=== PATIENT | male | born 1985 | race Caucasian/White ===

== ENCOUNTER 2021-05-11 08:53 | Inpatient (IN) | payer OTHER ==
[2021-05-11] MEDS ORDERED: KETOROLAC TROMETHAMINE 30 MG/1 ML VIAL IVPUSH ONE (10:24)
[2021-05-11] MEDS ORDERED: SODIUM CHLORIDE 1,000 ML IV STA ×2 (10:25→13:58)
[2021-05-11] MEDS ORDERED: ONDANSETRON 4 MG/2 ML VIAL IVPUSH ONE (10:25)
[2021-05-11] MEDS ORDERED: ONDANSETRON 4 MG/2 ML VIAL ONE (10:33)
[2021-05-11] MEDS ORDERED: KETOROLAC TROMETHAMINE 30 MG/1 ML VIAL ONE (10:33)
[2021-05-11 11:53] LABS: INR 1.19 (0.83-1.09); PROTHROMBIN TIME (PATIENT) 13.9 SEC (9.7-13.0)
[2021-05-11 11:55] LABS: BASO % 0.3 % (0-2.0); HEMATOCRIT 44.3 % (35.4-49); HEMOGLOBIN 14.5 GM/dL (11.7-16.9); LYMPH % 5.9 % (8-40); MCH 26.7 pg (25.7-33.7); MCHC 32.6 g/dl (32.0-35.9); MEAN CELL VOLUME 81.9 fl (80-96); MONO % 5.9 % (3.8-10.2); NEUT % 87.9 % (42.8-82.8); PLATELET COUNT 330 10^3/uL (134-434); RBC 5.42 M/mm3 (4.00-5.60); RDW 15.1 % (11.9-15.9); WHITE BLOOD COUNT 17.2 K/mm3 (4.0-10.0)
[2021-05-11 12:08] LABS: BLOOD UREA NITROGEN 12.4 mg/dL (7-18); CALCIUM 9.5 mg/dL (8.5-10.1)
[2021-05-11 12:11] LABS: CREATININE 0.8 mg/dL (0.55-1.3)
[2021-05-11 12:13] LABS: BILIRUBIN,TOTAL 0.5 mg/dL (0.2-1)
[2021-05-11] MEDS ORDERED: PIPERACILLIN/TAZOB 3.375 GM 3.375 GM in DEXTROSE 5%-WATER - 50 ML IVPB ONE (13:56)
[2021-05-11] MEDS ORDERED: morphine CARPU-JECT 4 MG/1 ML DISP.SYRIN IVPUSH ONE ×2 (13:58→17:36)
[2021-05-11] MEDS ORDERED: morphine SULFATE 4 MG/ML VIAL ONE ×3 (14:14→18:47)
[2021-05-11] MEDS ORDERED: PIPERACILLIN/TAZOB 3.375 GM 3.375 GM/50 ML BAG IVPB ONE (14:14)
[2021-05-11] MEDS ORDERED: ACETAMINOPHEN 1000 MG/100 ML BAG IVPB PRN (14:14)
[2021-05-11] MEDS ORDERED: ONDANSETRON 4 MG/2 ML VIAL IVPUSH PRN (14:17)
[2021-05-11 14:32] LABS: EPI CELLS 8 /uL (0-25.1); HYALINE CASTS 4 /uL (0-3.1); URINE APPEARANCE CLEAR; URINE BACTERIA 12 /uL (0-1359); URINE BILIRUBIN NEGATIVE (NEGATIVE); URINE COLOR YELLOW; URINE GLUCOSE (UA) NEGATIVE (NEGATIVE); URINE KETONE NEGATIVE (NEGATIVE); URINE LEUK ESTERASE NEGATIVE (NEGATIVE); URINE NITRITE NEGATIVE (NEGATIVE); URINE PROTEIN 2+ (NEGATIVE); URINE RBC 1056 /uL (0-23.9); URINE WBC 7 /uL (0-25.8)
[2021-05-11] MEDS ORDERED: IBUPROFEN 800 MG/8 ML IJ IVPB ONE ×2 (17:12→17:29)
[2021-05-11] MEDS: LACTATED RINGERS SOLUTION 1,000 ML/1,000 ML INFUS.BAG IV SCH (17:40)
[2021-05-12] MEDS: LACTATED RINGERS SOLUTION 1,000 ML/1,000 ML INFUS.BAG IV SCH ×3 (02:12→16:33)
[2021-05-12] MEDS: morphine SULFATE 4 MG/ML VIAL IVPUSH PRN ×2 (02:13→17:42)
[2021-05-12 08:58] LABS: BASO % 0.2 % (0-2.0); EOS % 0.1 % (0-4.5); HEMATOCRIT 37.6 % (35.4-49); HEMOGLOBIN 12.3 GM/dL (11.7-16.9); LYMPH % 4.5 % (8-40); MCH 27.1 pg (25.7-33.7); MCHC 32.8 g/dl (32.0-35.9); MEAN CELL VOLUME 82.8 fl (80-96); MEAN PLT VOLUME 8.2 fl (7.5-11.1); MONO % 7.5 % (3.8-10.2); NEUT % 87.7 % (42.8-82.8); PLATELET COUNT 277 10^3/uL (134-434); RBC 4.54 M/mm3 (4.00-5.60); RDW 14.9 % (11.9-15.9); WHITE BLOOD COUNT 14.5 K/mm3 (4.0-10.0)
[2021-05-12] MEDS ORDERED: DEXTROSE 5%-WATER 100 ML IVPB ONE (09:34)
[2021-05-12] MEDS ORDERED: CEFTRIAXONE 2 GM in DEXTROSE 5%-WATER 100 ML IVPB SCH (10:00)
[2021-05-12] MEDS ORDERED: FLU VACC QS2021-22(6MOS UP)/PF 60 MCG/0.5 ML SYRINGE IM ONE (10:00)
[2021-05-12] MEDS: IBUPROFEN 800 MG/8 ML IJ IVPB PRN ×2 (14:10→21:50)
[2021-05-12] MEDS: ACETAMINOPHEN 1000 MG/100 ML BAG IVPB PRN (17:03)
[2021-05-12] MEDS ORDERED: DEXTROSE 5%-WATER - 50 ML IVPB ONE ×2 (17:17→23:43)
[2021-05-12] MEDS ORDERED: PIPERACILLIN/TAZOBACTAM 3.375 GM VIAL IVPB ONE ×2 (17:17→23:43)
[2021-05-12] MEDS: PIPERACILLIN/TAZOB 3.375 GM 3.375 GM in DEXTROSE 5%-WATER - 50 ML IVPB SCH (18:01)
[2021-05-12] MEDS ORDERED: morphine SULFATE 4 MG/ML VIAL IM ONE (18:39)
[2021-05-12] MEDS ORDERED: morphine SULFATE 4 MG/ML VIAL IVPUSH ONE (18:52)
[2021-05-13] MEDS: PIPERACILLIN/TAZOB 3.375 GM 3.375 GM in DEXTROSE 5%-WATER - 50 ML IVPB SCH ×3 (01:11→18:33)
[2021-05-13] MEDS: LACTATED RINGERS SOLUTION 1,000 ML/1,000 ML INFUS.BAG IV SCH ×2 (02:20→16:02)
[2021-05-13] MEDS: morphine SULFATE 4 MG/ML VIAL IVPUSH PRN ×3 (05:01→21:09)
[2021-05-13] MEDS ORDERED: PIPERACILLIN/TAZOBACTAM 3.375 GM VIAL IVPB ONE ×2 (09:00→18:20)
[2021-05-13] MEDS ORDERED: DEXTROSE 5%-WATER - 50 ML IVPB ONE ×2 (09:00→18:20)
[2021-05-13] MEDS: ACETAMINOPHEN 1000 MG/100 ML BAG IVPB PRN (09:03)
[2021-05-13 09:11] LABS: HEMATOCRIT 42.5 % (35.4-49); HEMOGLOBIN 13.9 GM/dL (11.7-16.9); MCH 27.3 pg (25.7-33.7); MCHC 32.8 g/dl (32.0-35.9); MEAN CELL VOLUME 83.2 fl (80-96); MEAN PLT VOLUME 8.4 fl (7.5-11.1); PLATELET COUNT 284 10^3/uL (134-434); RDW 15.4 % (11.9-15.9)
[2021-05-13 09:42] LABS: BLOOD UREA NITROGEN 14.2 mg/dL (7-18); CALCIUM 8.5 mg/dL (8.5-10.1)
[2021-05-13 09:43] LABS: MAGNESIUM 2.2 mg/dL (1.8-2.4)
[2021-05-13 09:45] LABS: CREATININE 0.9 mg/dL (0.55-1.3)
[2021-05-13 09:46] LABS: PHOSPHOROUS 3.6 mg/dL (2.5-4.9)
[2021-05-13] MEDS: IBUPROFEN 800 MG/8 ML IJ IVPB PRN (11:40)
[2021-05-14] MEDS ORDERED: PIPERACILLIN/TAZOBACTAM 3.375 GM VIAL IVPB ONE ×4 (03:20→23:15)
[2021-05-14] MEDS ORDERED: DEXTROSE 5%-WATER - 50 ML IVPB ONE ×4 (03:20→23:15)
[2021-05-14] MEDS: PIPERACILLIN/TAZOB 3.375 GM 3.375 GM in DEXTROSE 5%-WATER - 50 ML IVPB SCH ×3 (03:50→17:11)
[2021-05-14 09:27] LABS: HEMATOCRIT 37.7 % (35.4-49); HEMOGLOBIN 12.7 GM/dL (11.7-16.9); MCHC 33.7 g/dl (32.0-35.9); MEAN CELL VOLUME 79.9 fl (80-96); PLATELET COUNT 293 10^3/uL (134-434); RBC 4.71 M/mm3 (4.00-5.60); RDW 15.5 % (11.9-15.9); WHITE BLOOD COUNT 9.3 K/mm3 (4.0-10.0)
[2021-05-14 09:52] LABS: CALCIUM 8.6 mg/dL (8.5-10.1)
[2021-05-14 09:53] LABS: BLOOD UREA NITROGEN 20.3 mg/dL (7-18)
[2021-05-14 09:56] LABS: CREATININE 0.8 mg/dL (0.55-1.3)
[2021-05-14] MEDS: LACTATED RINGERS SOLUTION 1,000 ML/1,000 ML INFUS.BAG IV SCH ×2 (13:17→16:42)
[2021-05-14] MEDS: LACTOBACILLUS ACIDOPHILUS 1 TABLET PO SCH (13:18)
[2021-05-14] MEDS: IBUPROFEN 800 MG/8 ML IJ IVPB PRN (16:04)
[2021-05-14] MEDS ORDERED: morphine SULFATE 4 MG/ML VIAL IVPUSH PRN (16:26)
[2021-05-15] MEDS: PIPERACILLIN/TAZOB 3.375 GM 3.375 GM in DEXTROSE 5%-WATER - 50 ML IVPB SCH ×3 (01:24→17:06)
[2021-05-15] MEDS: LACTATED RINGERS SOLUTION 1,000 ML/1,000 ML INFUS.BAG IV SCH ×2 (02:17→15:50)
[2021-05-15] MEDS ORDERED: DEXTROSE 5%-WATER - 50 ML IVPB ONE ×2 (09:25→16:58)
[2021-05-15] MEDS ORDERED: PIPERACILLIN/TAZOBACTAM 3.375 GM VIAL IVPB ONE ×2 (09:25→16:58)
[2021-05-15] MEDS: LACTOBACILLUS ACIDOPHILUS 1 TABLET PO SCH (09:52)
[2021-05-15 09:58] LABS: HEMATOCRIT 38.9 % (35.4-49); HEMOGLOBIN 12.7 GM/dL (11.7-16.9); MCH 26.8 pg (25.7-33.7); MCHC 32.6 g/dl (32.0-35.9); MEAN CELL VOLUME 82.4 fl (80-96); MEAN PLT VOLUME 8.2 fl (7.5-11.1); PLATELET COUNT 330 10^3/uL (134-434); RBC 4.72 M/mm3 (4.00-5.60); RDW 15.9 % (11.9-15.9)
[2021-05-15 10:24] LABS: BLOOD UREA NITROGEN 17.1 mg/dL (7-18); CALCIUM 8.5 mg/dL (8.5-10.1)
[2021-05-15 10:25] LABS: MAGNESIUM 2.6 mg/dL (1.8-2.4)
[2021-05-15 10:28] LABS: CREATININE 0.7 mg/dL (0.55-1.3)
[2021-05-15] MEDS: MELATONIN 5 MG TABLETS PO PRN (23:20)
[2021-05-16] MEDS ORDERED: DEXTROSE 5%-WATER - 50 ML IVPB ONE ×3 (02:46→17:35)
[2021-05-16] MEDS ORDERED: PIPERACILLIN/TAZOBACTAM 3.375 GM VIAL IVPB ONE ×3 (02:46→17:35)
[2021-05-16] MEDS: PIPERACILLIN/TAZOB 3.375 GM 3.375 GM in DEXTROSE 5%-WATER - 50 ML IVPB SCH ×3 (02:50→17:50)
[2021-05-16] MEDS ORDERED: ENOXAPARIN NA (PORCINE) 40 MG/0.4 ML DISP.SYRIN SQ ONE (08:34)
[2021-05-16 08:56] LABS: HEMATOCRIT 36.1 % (35.4-49); MCHC 33.3 g/dl (32.0-35.9); MEAN PLT VOLUME 7.8 fl (7.5-11.1); PLATELET COUNT 293 10^3/uL (134-434); RBC 4.46 M/mm3 (4.00-5.60); RDW 15.9 % (11.9-15.9); WHITE BLOOD COUNT 12.1 K/mm3 (4.0-10.0)
[2021-05-16 09:16] LABS: CALCIUM 7.7 mg/dL (8.5-10.1)
[2021-05-16 09:17] LABS: MAGNESIUM 2.3 mg/dL (1.8-2.4)
[2021-05-16 09:20] LABS: CREATININE 0.6 mg/dL (0.55-1.3); PHOSPHOROUS 3.5 mg/dL (2.5-4.9)
[2021-05-16] MEDS: LACTATED RINGERS SOLUTION 1,000 ML/1,000 ML INFUS.BAG IV SCH ×3 (09:58→17:51)
[2021-05-16] MEDS: LACTOBACILLUS ACIDOPHILUS 1 TABLET PO SCH (09:59)
[2021-05-16] MEDS ORDERED: ACETAMINOPHEN 325 MG TABLET (FP) PO PRN (15:37)
[2021-05-16] MEDS: MELATONIN 5 MG TABLETS PO PRN (21:06)
[2021-05-17] MEDS ORDERED: DEXTROSE 5%-WATER - 50 ML IVPB ONE ×3 (01:08→17:08)
[2021-05-17] MEDS ORDERED: PIPERACILLIN/TAZOBACTAM 3.375 GM VIAL IVPB ONE ×3 (01:08→17:08)
[2021-05-17] MEDS: PIPERACILLIN/TAZOB 3.375 GM 3.375 GM in DEXTROSE 5%-WATER - 50 ML IVPB SCH ×3 (01:22→17:09)
[2021-05-17] MEDS: LACTATED RINGERS SOLUTION 1,000 ML/1,000 ML INFUS.BAG IV SCH ×2 (05:13→21:37)
[2021-05-17 08:40] LABS: HEMATOCRIT 37.5 % (35.4-49); HEMOGLOBIN 12.3 GM/dL (11.7-16.9); MCH 26.7 pg (25.7-33.7); MCHC 32.9 g/dl (32.0-35.9); MEAN CELL VOLUME 81.4 fl (80-96); MEAN PLT VOLUME 8.2 fl (7.5-11.1); PLATELET COUNT 330 10^3/uL (134-434); RBC 4.61 M/mm3 (4.00-5.60); RDW 15.6 % (11.9-15.9); WHITE BLOOD COUNT 14.7 K/mm3 (4.0-10.0)
[2021-05-17 09:12] LABS: BLOOD UREA NITROGEN 11.1 mg/dL (7-18); CALCIUM 7.6 mg/dL (8.5-10.1); MAGNESIUM 2.3 mg/dL (1.8-2.4)
[2021-05-17 09:15] LABS: CREATININE 0.6 mg/dL (0.55-1.3)
[2021-05-17 09:16] LABS: PHOSPHOROUS 3.5 mg/dL (2.5-4.9)
[2021-05-17] MEDS: LACTOBACILLUS ACIDOPHILUS 1 TABLET PO SCH (10:46)
[2021-05-17] MEDS ORDERED: SODIUM CHLORIDE 500 ML IV SCH (14:45)
[2021-05-17] MEDS: MIDAZOLAM HCL 2 MG/2 ML SINGLE DOSE VIAL IVPUSH SCH ×2 (14:48→15:16)
[2021-05-17] MEDS: MELATONIN 5 MG TABLETS PO PRN (21:37)
[2021-05-18] MEDS ORDERED: DEXTROSE 5%-WATER - 50 ML IVPB ONE ×3 (02:15→18:18)
[2021-05-18] MEDS ORDERED: PIPERACILLIN/TAZOBACTAM 3.375 GM VIAL IVPB ONE ×3 (02:15→18:18)
[2021-05-18] MEDS: PIPERACILLIN/TAZOB 3.375 GM 3.375 GM in DEXTROSE 5%-WATER - 50 ML IVPB SCH ×3 (02:23→18:23)
[2021-05-18] MEDS: LACTATED RINGERS SOLUTION 1,000 ML/1,000 ML INFUS.BAG IV SCH ×2 (06:11→23:02)
[2021-05-18] MEDS: LACTOBACILLUS ACIDOPHILUS 1 TABLET PO SCH (10:14)
[2021-05-18 10:19] LABS: HEMATOCRIT 36.8 % (35.4-49); HEMOGLOBIN 12.2 GM/dL (11.7-16.9); MCH 26.4 pg (25.7-33.7); MCHC 33.1 g/dl (32.0-35.9); MEAN CELL VOLUME 79.7 fl (80-96); MEAN PLT VOLUME 8.3 fl (7.5-11.1); PLATELET COUNT 369 10^3/uL (134-434); RBC 4.61 M/mm3 (4.00-5.60); RDW 15.6 % (11.9-15.9); WHITE BLOOD COUNT 14.4 K/mm3 (4.0-10.0)
[2021-05-18 11:27] LABS: CALCIUM 8.1 mg/dL (8.5-10.1)
[2021-05-18 11:28] LABS: BLOOD UREA NITROGEN 9.6 mg/dL (7-18)
[2021-05-18 11:29] LABS: MAGNESIUM 2.5 mg/dL (1.8-2.4)
[2021-05-18 11:31] LABS: CREATININE 0.6 mg/dL (0.55-1.3)
[2021-05-18 11:32] LABS: PHOSPHOROUS 3.7 mg/dL (2.5-4.9)
[2021-05-18 11:50] VITALS: BMI 37.4
[2021-05-18] MEDS ORDERED: ENOXAPARIN NA (PORCINE) 40 MG/0.4 ML DISP.SYRIN SQ ONE (13:23)
[2021-05-18] MEDS: MELATONIN 5 MG TABLETS PO PRN (23:02)
[2021-05-19] MEDS ORDERED: PIPERACILLIN/TAZOBACTAM 3.375 GM VIAL IVPB ONE ×2 (01:09→09:16)
[2021-05-19] MEDS ORDERED: DEXTROSE 5%-WATER - 50 ML IVPB ONE ×2 (01:09→09:17)
[2021-05-19] MEDS: PIPERACILLIN/TAZOB 3.375 GM 3.375 GM in DEXTROSE 5%-WATER - 50 ML IVPB SCH ×2 (01:28→09:33)
[2021-05-19] MEDS: LACTATED RINGERS SOLUTION 1,000 ML/1,000 ML INFUS.BAG IV SCH (03:26)
[2021-05-19 08:51] LABS: HEMATOCRIT 36.3 % (35.4-49); MCH 26.5 pg (25.7-33.7); MEAN CELL VOLUME 80.3 fl (80-96); PLATELET COUNT 349 10^3/uL (134-434); RBC 4.52 M/mm3 (4.00-5.60); RDW 15.3 % (11.9-15.9); WHITE BLOOD COUNT 11.7 K/mm3 (4.0-10.0)
[2021-05-19] MEDS: LACTOBACILLUS ACIDOPHILUS 1 TABLET PO SCH (09:25)
[2021-05-19 09:27] LABS: BLOOD UREA NITROGEN 8.5 mg/dL (7-18)
[2021-05-19 09:28] LABS: CALCIUM 7.7 mg/dL (8.5-10.1); CREATININE 0.7 mg/dL (0.55-1.3); MAGNESIUM 2.5 mg/dL (1.8-2.4); PHOSPHOROUS 3.8 mg/dL (2.5-4.9)
[2021-05-19] MEDS: ENOXAPARIN NA (PORCINE) 40 MG/0.4 ML DISP.SYRIN SQ SCH (09:32)
[2021-05-19] MEDS: MELATONIN 5 MG TABLETS PO PRN (21:44)
[2021-05-20 08:49] LABS: HEMATOCRIT 35.8 % (35.4-49); HEMOGLOBIN 11.8 GM/dL (11.7-16.9); MCH 26.5 pg (25.7-33.7); MCHC 32.9 g/dl (32.0-35.9); MEAN CELL VOLUME 80.6 fl (80-96); MEAN PLT VOLUME 8.3 fl (7.5-11.1); PLATELET COUNT 409 10^3/uL (134-434); RBC 4.44 M/mm3 (4.00-5.60); RDW 15.7 % (11.9-15.9)
[2021-05-20 09:46] LABS: CALCIUM 8.1 mg/dL (8.5-10.1)
[2021-05-20 09:47] LABS: MAGNESIUM 2.7 mg/dL (1.8-2.4)
[2021-05-20 09:50] LABS: CREATININE 0.5 mg/dL (0.55-1.3); PHOSPHOROUS 4.5 mg/dL (2.5-4.9)
[2021-05-20] MEDS: LACTOBACILLUS ACIDOPHILUS 1 TABLET PO SCH (10:01)
[2021-05-20] MEDS: ENOXAPARIN NA (PORCINE) 40 MG/0.4 ML DISP.SYRIN SQ SCH (10:01)
[2021-05-20] MEDS ORDERED: CEFTRIAXONE 1 GM in DEXTROSE 5%-WATER - 50 ML IVPB SCH (11:00)
[2021-05-20] MEDS ORDERED: DEXTROSE 5%-WATER - 50 ML IVPB ONE (13:18)
[2021-05-20] MEDS ORDERED: cefTRIAXone SODIUM 1 GM VIAL ONE (13:18)
[2021-05-20 16:20] VITALS: BP 132/71; PULSE 81; TEMP 98.2
== END 2021-05-20 18:43 | disposition home or self-care (01) | DRG 358 ==
LOC: JER 08:53 → JERBED 13:58 → J8W 20:56
PROVIDERS: ADMIT Internal Medicine; ATTEND Internal Medicine
PROC: 0W9G4ZZ Drainage of Peritoneal Cavity, Percutaneous Endoscopic Approach (ICD-10-PCS; principal; 2021-05-17)
DX: K35.33 Acute appendicitis with perforation, localized peritonitis, and gangrene, with abscess (principal); D72.829 Elevated white blood cell count, unspecified; K76.0 Fatty (change of) liver, not elsewhere classified; R19.7 Diarrhea, unspecified
CPT/HCPCS: 36415; 49406; 71045-TC-FY; 74177-TC; 80048; 80053; 81003; 83735; 84100; 85025; 85027; 85610; 86850; 86900; 86901; 87040; 87070; 87075; 87102; 87116; 87186; 87205; 87206; 87210; 87324; 87449; 87899; 90686; 93005; 93010; 94010; 99285-25; C1729; C1769; C9803; G0008; J0131; Q9967; U0003; U0005

== ENCOUNTER 2021-09-03 04:39 | Day surgery (SDC) | payer OTHER ==
[2021-09-02 08:50] VITALS: BMI 33.8
[2021-09-03] MEDS ORDERED: LIDOCAINE HCL 1%, 10 MG/ML (20ML VIAL) ONE (07:12)
[2021-09-03] MEDS ORDERED: ROCURONIUM BROMIDE 50 MG/5 ML SYRINGE ONE ×2 (08:01→09:24)
[2021-09-03] MEDS ORDERED: PROPOFOL 20 ML ONE ×2 (08:01→10:58)
[2021-09-03] MEDS ORDERED: MIDAZOLAM HCL 2 MG/2 ML SINGLE DOSE VIAL ONE (08:02)
[2021-09-03] MEDS ORDERED: LIDOCAINE HCL/PF 2% SDV 5ML VIAL ONE (08:19)
[2021-09-03] MEDS ORDERED: ceFAZolin SODIUM 1 GM VIAL ONE (08:19)
[2021-09-03] MEDS ORDERED: KETOROLAC TROMETHAMINE 30 MG/1 ML VIAL ONE (08:19)
[2021-09-03] MEDS ORDERED: DEXAMETHASONE SOD PHOSPHATE 4 MG/1 ML VIAL ONE (08:19)
[2021-09-03] MEDS ORDERED: cefOXitin SODIUM 2 GM VIAL (RESTRICTED TO ID) IVPB ONE (08:21)
[2021-09-03] MEDS ORDERED: BUPIVACAINE HCL/PF 0.5% (5MG/ML) 10 ML VIAL IJ ONE ×2 (08:27)
[2021-09-03] MEDS ORDERED: ACETAMINOPHEN INJECTION 100 ML IVPB ONE (09:38)
[2021-09-03] MEDS ORDERED: SEVOFLURANE 250 ML BTL ONE (09:40)
[2021-09-03] MEDS ORDERED: DESFLURANE GAS 240 ML BOTTLE IH ONE (09:40)
[2021-09-03] MEDS ORDERED: NEOSTIGMINE METHYLSULFATE 0.5 MG/ML - 10 ML MDV ONE (11:08)
[2021-09-03] MEDS ORDERED: ONDANSETRON 4 MG/2 ML VIAL IVPUSH PRN (12:24)
[2021-09-03] MEDS ORDERED: oxyCODONE HCL 5 MG TABLET PO PRN (12:24)
[2021-09-03] MEDS ORDERED: LACTATED RINGERS SOLUTION 1,000 ML IV SCH (12:30)
[2021-09-03 14:46] VITALS: BP 114/76; PULSE 73; TEMP 97.7
[2021-09-03 15:54] LABS: HIV INTERPRETATION NEGATIVE (NEGATIVE)
== END 2021-09-03 14:30 | disposition home or self-care (01) ==
LOC: JASU-SURG 04:39
PROVIDERS: ATTEND Surgery
PROC: 0DBH4ZZ Excision of Cecum, Percutaneous Endoscopic Approach (ICD-10-PCS; 2021-09-03)
PROC: 0DTJ4ZZ Resection of Appendix, Percutaneous Endoscopic Approach (ICD-10-PCS; principal; 2021-09-03 08:00)
DX: K35.890 Other acute appendicitis without perforation or gangrene (principal)
CPT/HCPCS: 36415; 84460; 86803; 87340; 87389; 88304-TC; 94760